=== PATIENT | female | born 1945 ===

== ENCOUNTER → 2024-11-11 13:49 | Outpatient (BNVA) | payer MEDICARE, MEDICAID, SELFPAY | PROVIDERS: Visit Provider Internal Medicine Pulmonary Disease | DX: J45.40 Moderate persistent asthma, uncomplicated (principal); R91.1 Solitary pulmonary nodule; J30.9 Allergic rhinitis, unspecified | CPT/HCPCS: 99215; 36415 ==

== ENCOUNTER 2024-11-11 16:41 | Outpatient (REF) | payer MEDICARE, MEDICAID, SELFPAY ==
[2024-11-11 16:28] LABS: Abs Immature Grans 0.05 10^3/uL (0.0-0.06); HCT 39.8 % (36.0-46.0); HGB 12.8 g/dL (11.2-15.7); Immature Grans % 0.5 %; MCH 27.1 pg (27.0-33.0); MCHC 32.2 % (32.0-36.0); MCV 84 fL (80-95); MPV 9.9 fL (8.0-11.0); Platelet Count 227 10^3/uL (130-400); RBC 4.72 10^6/uL (3.93-5.22); RDW 13.5 % (11.7-14.6); RDW-SD 42.2 fL; WBC 10.01 10^3/uL (4.4-10.8)
== END 2024-11-11 16:42 | disposition home or self-care (01) ==
LOC: LBN 16:41
PROVIDERS: Visit Provider Internal Medicine Pulmonary Disease
DX: J45.40 Moderate persistent asthma, uncomplicated (principal)
CPT/HCPCS: 82785; 85025

== ENCOUNTER 2024-11-20 03:59 | Outpatient (CLI) | payer MEDICARE, MEDICAID, SELFPAY ==
[2024-11-20] MEDS: Inhaler, Assist Device 1 EACH MC (14:41)
[2024-11-20] MEDS: Levalbuterol HFA 15 GM INH 4 PUFF IH (14:41)
--- NOTE | 2024-11-24 08:17 | W.PFT ---
Date of service: 11/20/24 Time of Service: 13:02 Pulmonary Function Test Result Indications: Pulmonary nodule Impression 1. Good patient effort was noted. ATS standards for reproducibility were met. 2. Spirometry showed severe obstructive lung disease with an FEV1 of 48% (0.88 L). FEV1 improved to 54% post-bronchodilator 3. Following the administration of a bronchodilator there was significant response
== END 2024-11-20 04:00 | disposition home or self-care (01) ==
PROVIDERS: Visit Provider Internal Medicine Pulmonary Disease
DX: R91.1 Solitary pulmonary nodule (principal); J84.89 Other specified interstitial pulmonary diseases
CPT/HCPCS: 94060; 94726; 94729

== ENCOUNTER → 2024-11-25 13:52 | Outpatient (BNVA) | payer MEDICARE, MEDICAID, SELFPAY | PROVIDERS: Visit Provider Internal Medicine Pulmonary Disease | DX: R91.1 Solitary pulmonary nodule (principal); J45.40 Moderate persistent asthma, uncomplicated | CPT/HCPCS: 99215 ==

== ENCOUNTER → 2025-02-10 13:51 | Outpatient (BNVA) | payer MEDICARE, MEDICAID, SELFPAY | PROVIDERS: Visit Provider Internal Medicine Pulmonary Disease | DX: C34.90 Malignant neoplasm of unspecified part of unspecified bronchus or lung (principal); J45.40 Moderate persistent asthma, uncomplicated; R91.1 Solitary pulmonary nodule; R91.8 Other nonspecific abnormal finding of lung field | CPT/HCPCS: 99214 ==